=== PATIENT | male | born 1975 | race Caucasian/White ===

== ENCOUNTER 2020-07-02 02:35 | Emergency (ER) | payer BC ==
[~2020-07-02] VITALS: Ht 165.1 cm; Wt 96.2 kg
[~2020-07-02 02:35] MED LIST: COREG3.125 MG PO; ZANTAC150 MG PO
[2020-07-02 02:54] LABS: HEMATOCRIT 45.8 % (42.0-52.0); MEAN CELL VOLUME 85.8 fl (80.0-94.0); MEAN CORPUSCULAR HGB 29.2 pg (27.0-31.0); MEAN CORPUSCULAR HGB CONC 34.1 g/dl (33.0-37.0); MEAN PLATELET VOLUME 10.4 fl (9.6-12.3); PLATELET COUNT AUTOMATED 214 10*3/uL (130-400); RED BLOOD COUNT 5.34 10*6/uL (4.50-5.90); RED CELL DISTRI WIDTH 13.2 % (0-14.5); WHITE BLOOD COUNT 9.8 10*3/uL (4.8-10.8)
[2020-07-02 03:09] LABS: ALBUMIN 4.2 gm/dl (3.1-4.5); CREATININE 2.56 mg/dL (0.70-1.30); POTASSIUM 4.1 mmol/L (3.5-5.1); TOTAL PROTEIN 7.6 gm/dL (6.4-8.2)
[2020-07-02 03:16] LABS: BURR CELLS FEW; PLATELET SUFFICIENCY NORMAL (NORMAL); TOTAL CELLS COUNTED 100 #CELLS
--- NOTE | 2020-07-02 06:48 | NUR ---
PT BLOOD SUGAR IS [address] DR AWARE.
== END 2020-07-02 09:20 | disposition home or self-care (01) ==
LOC: ED 02:35
PROVIDERS: Internal Medicine
DX: S09.90XA Unspecified injury of head, initial encounter (principal); F10.10 Alcohol abuse, uncomplicated; R73.9 Hyperglycemia, unspecified; I10 Essential (primary) hypertension; Z88.8 Allergy status to other drugs, medicaments and biological substances; Z79.899 Other long term (current) drug therapy; Y90.9 Presence of alcohol in blood, level not specified

== ENCOUNTER 2023-04-04 17:16 | Emergency (ER) | payer BC ==
[~2023-04-04] VITALS: Wt 90.7 kg
[2023-04-04 17:35] LABS: BASO # 0.1 10*3/uL (0.0-0.1); BASO % 0.6 % (0.0-1.0); EOS # 0.1 10*3/uL (0.0-0.4); EOS % 0.6 % (1.0-4.0); HEMATOCRIT 44.7 % (42.0-52.0); MEAN CELL VOLUME 85.1 fl (80.0-94.0); MEAN CORPUSCULAR HGB 29.5 pg (27.0-31.0); MEAN CORPUSCULAR HGB CONC 34.7 g/dl (33.0-37.0); MEAN PLATELET VOLUME 10.1 fl (9.6-12.3); MONO # 0.6 10*3/uL (0.1-1.0); MONO % 5.6 % (3.0-9.0); NEUT # 8.8 10*3/uL (2.3-7.9); NEUT % 83.3 % (47.0-73.0); PLATELET COUNT AUTOMATED 200 10*3/uL (130-400); RED BLOOD COUNT 5.25 10*6/uL (4.50-5.90); RED CELL DISTRI WIDTH 13.3 % (0-14.5); WHITE BLOOD COUNT 10.6 10*3/uL (4.8-10.8)
[2023-04-04 17:45] LABS: ACT PARTIAL THROMBO TIME 27.7 SECONDS (20.0-32.1)
[2023-04-04 18:03] LABS: ALKALINE PHOSPHATASE 87 U/L (46-116); BUN 25 mg/dl (9-23); CHLORIDE 102 mmol/L (98-107); LIPASE 153 U/L (12-53); POTASSIUM 4.6 mmol/L (3.4-5.1); SGPT/ALT 17 U/L (10-49); TOTAL PROTEIN 6.7 gm/dL (6.0-8.0)
[2023-04-04] MEDS ORDERED: PREDNISONE5 MG PO (18:25)
[2023-04-04] MEDS ORDERED: MAGNESIUM OXID400 MG PO (18:26)
[2023-04-04] MEDS ORDERED: LIPITOR10 MG PO (18:26)
[2023-04-04] MEDS ORDERED: COREG25 MG PO (18:26)
[2023-04-04] MEDS ORDERED: PROCARDIA XL60 MG PO (18:27)
[2023-04-04] MEDS ORDERED: CELLCEPT250 MG PO (18:28)
[2023-04-04] MEDS ORDERED: PROGRAF1 M1 PO (18:28)
[2023-04-04] MEDS ORDERED: AMARYL4 MG PO (18:28)
[2023-04-04] MEDS ORDERED: ASPIRIN81 M1 PO (18:28)
== END 2023-04-04 21:12 | disposition short-term general hospital (02) ==
LOC: ED 17:16
PROVIDERS: Emergency Medicine
DX: I21.9 Acute myocardial infarction, unspecified (principal); R73.9 Hyperglycemia, unspecified; E83.42 Hypomagnesemia; N18.32 Chronic kidney disease, stage 3b; Z94.0 Kidney transplant status; Z88.4 Allergy status to anesthetic agent; Z79.899 Other long term (current) drug therapy; Z79.82 Long term (current) use of aspirin